=== PATIENT | male | born 1975 | race Two or more races ===

== ENCOUNTER 2020-03-11 15:49 | Inpatient (IN) | payer MEDICAID ==
[~2020-03-11] VITALS: Ht 170.2 cm; Wt 105.0 kg
[2020-03-11] MEDS ORDERED: VANCOMYCIN 1 G PREMIX 200 ML IV SCH (16:30)
[2020-03-11] MEDS ORDERED: PIPERACILLIN/TAZOBACTAM 3.375GM/50ML PREMIX IV ONE (16:30)
[2020-03-11] MEDS ORDERED: PIPERACILLIN/TAZOBACTAM 3.375 G in DEXT 5% WATER 100 ML IV SCH (16:30)
[2020-03-11] MEDS ORDERED: AZITHROMYCIN 500 MG in DEXT 5% WATER 250 ML IV SCH ×2 (16:30→19:00)
[2020-03-11 16:44] LABS: BASOPHILS % 0.6 % (0.0-2.0); EOSINOPHILS % 0.1 % (0.0-5.0); HEMATOCRIT. 41.7 % (42.0-52.0); HEMOGLOBIN. 14.4 g/dL (14.0-18.0); LYMPHOCYTES % 17.3 % (20.0-50.0); MEAN CORPUSCULAR VOLUME 92.7 fL (80.0-94.0); MEAN PLATELET VOLUME 8.2 fl (7.4-10.4); MONOCYTES % 4.5 % (2.0-8.0); NEUTROPHILS % 77.5 % (40.0-76.0); PLATELET 164 x1000/uL (130-400); RED CELL DISTRIBUTION WIDTH 13.4 % (11.6-14.6)
[2020-03-11 16:46] LABS: BG BASE EXCESS 0.8 mmol/L (-2.0-2.0); BG CARBOXYHEMOGLOBIN 0.6 % (0.5-1.5); BG DEOXYHEMOGLOBIN 6.1 % (0.0-5.0); BG FRACTION INSPIRED OXYGEN 100; BG HCO3 ACT 23.9 mmol/L (22.0-26.0); BG METHEMOGLOBIN 0.3 % (0.0-1.5); BG OXYGEN SATURATION 93.8 % (92.0-98.5); BG PCO2 34.1 mmHg (35.0-45.0); BG PH 7.464 (7.350-7.450); BG PO2 70.3 mmHg (75.0-100.0); BG SAMPLE SITE RIGHT RADIAL; BG VENT MODE MASK - NRB
[2020-03-11 16:47] LABS: CHLORIDE 100 mEq/L (98-107)
[2020-03-11 16:50] LABS: ETHANOL BLOOD < 10 mg/dL
[2020-03-11 16:54] LABS: D-DIMER 1.04 mg/L FEU (<0.50); PROTHROMBIN TIME 10.9 sec (9.6-11.0)
[2020-03-11] MEDS ORDERED: GUAIFENESIN 200MG/10ML SUGAR FREE UDC PO PRN (18:45)
[2020-03-11] MEDS ORDERED: DOCUSATE SODIUM 100MG CAPSULE PO PRN (18:45)
[2020-03-11] MEDS ORDERED: CLONIDINE 0.1MG TABLET PO PRN (18:45)
[2020-03-11] MEDS ORDERED: MAGNESIUM/ALUMINUM HYDROXIDE/SIMETHICONE 30ML UDC PO PRN (18:45)
[2020-03-11] MEDS ORDERED: ONDANSETRON HCL 4MG/2ML INJ IV PRN (18:45)
[2020-03-11] MEDS ORDERED: DEXAMETHASONE 4MG TABLET PO NR (19:00)
[2020-03-11] MEDS ORDERED: ENOXAPARIN 40MG/0.4ML SYR SUBCUT SCH (20:00)
[2020-03-11] MEDS ORDERED: CEFTRIAXONE 1 G PREMIX 50 ML IV SCH (21:00)
[2020-03-11] MEDS ORDERED: IOHEXOL-350 100 ML BOTTLE ONE (21:59)
[2020-03-11 23:03] LABS: CLARITY URINE CLOUDY (CLEAR); COLOR URINE DARK YELLOW (YELLOW); KETONES URINE 1+ (NEGATIVE); LEUKOCYTE ESTERASE URINE TRACE (NEGATIVE); NITRITE URINE NEGATIVE (NEGATIVE); OCCULT BLOOD URINE 2+ (NEGATIVE); PH URINE 5.5 (4.5-8.0); PROTEIN URINE 2+ (NEGATIVE); SPECIFIC GRAVITY URINE 1.029 (1.005-1.030); UROBILINOGEN URINE 0.2 E.U./dL (0.2-1.0)
[2020-03-11 23:23] LABS: *AMPHETAMINES SCREEN URINE NEGATIVE (NEGATIVE); *BARBITURATES SCREEN URINE NEGATIVE (NEGATIVE); *BENZODIAZEPINES SCREEN URINE NEGATIVE (NEGATIVE); *COCAINE SCREEN URINE NEGATIVE (NEGATIVE); METHADONE URINE SCREEN NEGATIVE (NEGATIVE); OPIATES URINE SCREEN NEGATIVE (NEGATIVE); PHENCYCLIDINE URINE SCREEN NEGATIVE (NEGATIVE)
[2020-03-11 23:25] LABS: CANNABINOID URINE SCREEN NEGATIVE (NEGATIVE)
[2020-03-12 00:02] VITALS: BP 132/82
[2020-03-12] MEDS: ALBUTEROL 6.7GM HFA INHALER ORI SCH ×4 (00:16→17:15)
[2020-03-12 00:21] VITALS: BP 128/82
[2020-03-12 04:00] VITALS: BP 115/73
[2020-03-12 06:18] LABS: BASOPHILS % 0.3 % (0.0-2.0); HEMATOCRIT. 40.7 % (42.0-52.0); HEMOGLOBIN. 14.1 g/dL (14.0-18.0); LYMPHOCYTES % 9.1 % (20.0-50.0); MEAN CORPUSCULAR HEMOGLOBIN 32.2 pg (28.0-32.0); MEAN CORPUSCULAR VOLUME 92.5 fL (80.0-94.0); MONOCYTES % 3.5 % (2.0-8.0); NEUTROPHILS % 87.1 % (40.0-76.0); PLATELET 162 x1000/uL (130-400); RED CELL DISTRIBUTION WIDTH 13.6 % (11.6-14.6)
[2020-03-12 06:36] LABS: CHLORIDE 103 mEq/L (98-107)
[2020-03-12] MEDS: ENOXAPARIN 100MG/ML SYR SUBCUT SCH ×2 (08:31→20:40)
[2020-03-12] MEDS ORDERED: DEXAMETHASONE 4MG TABLET PO SCH (09:00)
[2020-03-12 12:00] VITALS: BP 115/64
[2020-03-12 16:06] VITALS: BP 117/74
[2020-03-12] MEDS ORDERED: REMDESIVIR 200 MG in SODIUM CHLORIDE 0.9% 250 ML IV SCH (20:00)
[2020-03-12] MEDS: AZITHROMYCIN 500 MG in DEXT 5% WATER 250 ML IV SCH (20:36)
[2020-03-12 20:37] VITALS: BP 121/70
[2020-03-12] MEDS: GUAIFENESIN 600MG ER TABLET PO SCH (20:38)
[2020-03-12] MEDS: ACETAMINOPHEN 325MG TABLET PO PRN (20:46)
[2020-03-12] MEDS: CEFTRIAXONE 1 G PREMIX 50 ML IV SCH (21:00)
[2020-03-13] VITALS: BP 122/72
[2020-03-13] MEDS: ALBUTEROL 6.7GM HFA INHALER ORI SCH ×5 (00:08→23:29)
[2020-03-13 04:00] VITALS: BP 128/73
[2020-03-13 07:59] LABS: CHLORIDE 100 mEq/L (98-107)
[2020-03-13 08:00] VITALS: BP 102/59
[2020-03-13 08:19] LABS: CREATINE KINASE 486 IU/L (39-308)
[2020-03-13] MEDS: GUAIFENESIN 600MG ER TABLET PO SCH ×2 (08:45→21:38)
[2020-03-13] MEDS: ENOXAPARIN 100MG/ML SYR SUBCUT SCH ×2 (08:46→21:39)
[2020-03-13] MEDS: DEXAMETHASONE 4MG TABLET PO SCH (08:46)
[2020-03-13] MEDS ORDERED: DEXAMETHASONE 10 MG/ML VIAL IV SCH (09:00)
[2020-03-13 12:00] VITALS: BP 127/68
[2020-03-13 16:00] VITALS: BP 107/68
[2020-03-13 16:44] LABS: BG CARBOXYHEMOGLOBIN 0.2 % (0.5-1.5); BG DEOXYHEMOGLOBIN 7.3 % (0.0-5.0); BG FRACTION INSPIRED OXYGEN 100; BG HCO3 ACT 25.6 mmol/L (22.0-26.0); BG METHEMOGLOBIN 0.3 % (0.0-1.5); BG OXYGEN SATURATION 92.7 % (92.0-98.5); BG OXYHEMOGLOBIN 92.2 % (94.0-97.0); BG PCO2 36.6 mmHg (35.0-45.0); BG PH 7.462 (7.350-7.450); BG SAMPLE SITE RIGHT RADIAL; BG TOTAL HEMOGLOBIN 14.8 g/dL (12.0-18.0); BG VENT MODE MASK - NRB
[2020-03-13] MEDS: AZITHROMYCIN 500 MG in DEXT 5% WATER 250 ML IV SCH (19:33)
[2020-03-13 20:00] VITALS: BP 117/61
[2020-03-13] MEDS: REMDESIVIR 100 MG in SODIUM CHLORIDE 0.9% 250 ML IV SCH (20:34)
[2020-03-13] MEDS: CEFTRIAXONE 1 G PREMIX 50 ML IV SCH (21:38)
[2020-03-14] VITALS: BP 116/71
[2020-03-14 04:00] VITALS: BP 111/68
[2020-03-14] MEDS: ALBUTEROL 6.7GM HFA INHALER ORI SCH ×3 (05:53→17:32)
[2020-03-14 08:00] VITALS: BP 119/73
[2020-03-14] MEDS: ENOXAPARIN 100MG/ML SYR SUBCUT SCH ×2 (08:02→21:11)
[2020-03-14] MEDS: DEXAMETHASONE 4MG TABLET PO SCH (08:02)
[2020-03-14] MEDS: GUAIFENESIN 600MG ER TABLET PO SCH ×2 (08:02→21:11)
[2020-03-14 08:26] LABS: CHLORIDE 103 mEq/L (98-107)
[2020-03-14 12:00] VITALS: BP 118/79
[2020-03-14 16:00] VITALS: BP 124/67
[2020-03-14 20:00] VITALS: BP 138/72
[2020-03-14] MEDS: REMDESIVIR 100 MG in SODIUM CHLORIDE 0.9% 250 ML IV SCH (20:16)
[2020-03-14] MEDS: AZITHROMYCIN 500 MG in DEXT 5% WATER 250 ML IV SCH (20:16)
[2020-03-14] MEDS: CEFTRIAXONE 1 G PREMIX 50 ML IV SCH (21:00)
[2020-03-15] VITALS: BP 109/76
[2020-03-15] MEDS: ALBUTEROL 6.7GM HFA INHALER ORI SCH ×5 (02:01→23:38)
[2020-03-15 04:00] VITALS: BP 125/65
[2020-03-15 06:51] LABS: CHLORIDE 103 mEq/L (98-107)
[2020-03-15 08:00] VITALS: BP 121/73
[2020-03-15] MEDS: DEXAMETHASONE 4MG TABLET PO SCH (08:56)
[2020-03-15] MEDS: GUAIFENESIN 600MG ER TABLET PO SCH ×2 (08:56→21:18)
[2020-03-15] MEDS: ENOXAPARIN 100MG/ML SYR SUBCUT SCH ×2 (08:56→21:18)
[2020-03-15] MEDS ORDERED: POTASSIUM CHLORIDE 20MEQ TABLET SR PO SCH (10:00)
[2020-03-15 12:00] VITALS: BP 123/73
[2020-03-15] MEDS: ACETAMINOPHEN 325MG TABLET PO PRN (12:53)
[2020-03-15 16:00] VITALS: BP 126/84
[2020-03-15 20:00] VITALS: BP 107/64
[2020-03-15] MEDS: REMDESIVIR 100 MG in SODIUM CHLORIDE 0.9% 250 ML IV SCH (20:29)
[2020-03-15] MEDS: AZITHROMYCIN 500 MG in DEXT 5% WATER 250 ML IV SCH (21:18)
[2020-03-15] MEDS: CEFTRIAXONE 1 G PREMIX 50 ML IV SCH (23:37)
[2020-03-16] VITALS: BP 124/73
[2020-03-16 04:00] VITALS: BP 125/70
[2020-03-16] MEDS: ALBUTEROL 6.7GM HFA INHALER ORI SCH ×3 (06:00→18:36)
[2020-03-16 07:29] LABS: CHLORIDE 100 mEq/L (98-107)
[2020-03-16 07:37] LABS: BASOPHILS % 0.1 % (0.0-2.0); EOSINOPHILS % 0.2 % (0.0-5.0); HEMATOCRIT. 41.1 % (42.0-52.0); HEMOGLOBIN. 14.1 g/dL (14.0-18.0); LYMPHOCYTES % 10.6 % (20.0-50.0); MEAN CORPUSCULAR HEMOGLOBIN 31.9 pg (28.0-32.0); MEAN CORPUSCULAR VOLUME 92.6 fL (80.0-94.0); MEAN PLATELET VOLUME 8.3 fl (7.4-10.4); MONOCYTES % 2.2 % (2.0-8.0); NEUTROPHILS % 86.9 % (40.0-76.0); PLATELET 237 x1000/uL (130-400); RED BLOOD CELL COUNT 4.44 mill/uL (4.7-6.1); RED CELL DISTRIBUTION WIDTH 13.6 % (11.6-14.6)
[2020-03-16 08:00] VITALS: BP 124/69
[2020-03-16] MEDS: DEXAMETHASONE 4MG TABLET PO SCH (09:50)
[2020-03-16] MEDS: GUAIFENESIN 600MG ER TABLET PO SCH ×2 (09:51→21:47)
[2020-03-16] MEDS: ENOXAPARIN 100MG/ML SYR SUBCUT SCH ×2 (09:52→21:47)
[2020-03-16 12:00] VITALS: BP 159/89
[2020-03-16 12:32] LABS: BG BASE EXCESS -0.8 mmol/L (-2.0-2.0); BG DEOXYHEMOGLOBIN 4.7 % (0.0-5.0); BG FRACTION INSPIRED OXYGEN 99.9; BG HCO3 ACT 21.5 mmol/L (22.0-26.0); BG METHEMOGLOBIN 0.3 % (0.0-1.5); BG OXYGEN SATURATION 95.3 % (92.0-98.5); BG PCO2 29.8 mmHg (35.0-45.0); BG PH 7.476 (7.350-7.450); BG SAMPLE SITE RIGHT RADIAL; BG TOTAL HEMOGLOBIN 15.3 g/dL (12.0-18.0); BG VENT MODE MASK - NRB
[2020-03-16 20:00] VITALS: BP 113/67
[2020-03-16] MEDS: REMDESIVIR 100 MG in SODIUM CHLORIDE 0.9% 250 ML IV SCH (20:50)
[2020-03-16] MEDS: AZITHROMYCIN 500 MG in DEXT 5% WATER 250 ML IV SCH (21:48)
[2020-03-17] VITALS: BP 113/72
[2020-03-17] MEDS: CEFTRIAXONE 1 G PREMIX 50 ML IV SCH (00:48)
[2020-03-17] MEDS: ALBUTEROL 6.7GM HFA INHALER ORI SCH ×4 (00:48→18:29)
[2020-03-17 04:00] VITALS: BP 115/64
[2020-03-17 06:28] LABS: CHLORIDE 102 mEq/L (98-107)
[2020-03-17 08:00] VITALS: BP 124/68
[2020-03-17] MEDS: ENOXAPARIN 100MG/ML SYR SUBCUT SCH ×2 (09:11→20:25)
[2020-03-17] MEDS: GUAIFENESIN 600MG ER TABLET PO SCH ×2 (09:12→20:24)
[2020-03-17] MEDS: DEXAMETHASONE 4MG TABLET PO SCH (09:12)
[2020-03-17 12:00] VITALS: BP 110/72
[2020-03-17 16:00] VITALS: BP 135/72
[2020-03-17 20:41] VITALS: BP 107/78
[2020-03-18] VITALS: BP 126/69
[2020-03-18 04:00] VITALS: BP 132/82
[2020-03-18] MEDS: ALBUTEROL 6.7GM HFA INHALER ORI SCH ×4 (05:33→17:35)
[2020-03-18 08:00] VITALS: BP 120/86
[2020-03-18] MEDS: ENOXAPARIN 100MG/ML SYR SUBCUT SCH ×2 (09:19→21:02)
[2020-03-18] MEDS: GUAIFENESIN 600MG ER TABLET PO SCH ×2 (09:20→21:01)
[2020-03-18] MEDS: DEXAMETHASONE 4MG TABLET PO SCH (09:20)
[2020-03-18 12:00] VITALS: BP 117/77
[2020-03-18 15:01] LABS: BG BASE EXCESS 0.8 mmol/L (-2.0-2.0); BG DEOXYHEMOGLOBIN 3.8 % (0.0-5.0); BG FRACTION INSPIRED OXYGEN 99.9; BG HCO3 ACT 25.1 mmol/L (22.0-26.0); BG METHEMOGLOBIN 0.3 % (0.0-1.5); BG OXYGEN SATURATION 96.2 % (92.0-98.5); BG OXYHEMOGLOBIN 95.9 % (94.0-97.0); BG PH 7.426 (7.350-7.450); BG PO2 85.9 mmHg (75.0-100.0); BG SAMPLE SITE RIGHT RADIAL; BG VENT MODE MASK - NRB
[2020-03-18 16:00] VITALS: BP 111/75
[2020-03-18 20:00] VITALS: BP 139/75
[2020-03-19] VITALS: BP 106/81
[2020-03-19] MEDS: ALBUTEROL 6.7GM HFA INHALER ORI SCH ×4 (00:16→18:31)
[2020-03-19 04:00] VITALS: BP 125/77
[2020-03-19] MEDS: ENOXAPARIN 100MG/ML SYR SUBCUT SCH (09:31)
[2020-03-19] MEDS: GUAIFENESIN 600MG ER TABLET PO SCH ×2 (09:32→21:46)
[2020-03-19] MEDS: DEXAMETHASONE 4MG TABLET PO SCH (09:32)
[2020-03-19 13:33] LABS: BG BASE EXCESS 1.3 mmol/L (-2.0-2.0); BG CARBOXYHEMOGLOBIN 0.3 % (0.5-1.5); BG FRACTION INSPIRED OXYGEN 21; BG HCO3 ACT 23.8 mmol/L (22.0-26.0); BG METHEMOGLOBIN 0.1 % (0.0-1.5); BG OXYGEN SATURATION 80.9 % (92.0-98.5); BG OXYHEMOGLOBIN 80.6 % (94.0-97.0); BG PCO2 32.1 mmHg (35.0-45.0); BG PH 7.488 (7.350-7.450); BG SAMPLE SITE LEFT RADIAL; BG TOTAL HEMOGLOBIN 15.7 g/dL (12.0-18.0); BG VENT MODE ROOM AIR
[2020-03-19 16:00] VITALS: BP 121/79
[2020-03-19 20:00] VITALS: BP 100/70
[2020-03-19] MEDS: ENOXAPARIN 120MG/0.8ML SYR SUBCUT SCH (21:45)
[2020-03-20] VITALS: BP 120/78
[2020-03-20] MEDS: ALBUTEROL 6.7GM HFA INHALER ORI SCH ×4 (00:21→18:19)
[2020-03-20 04:00] VITALS: BP 103/70
[2020-03-20 08:00] VITALS: BP 105/68
[2020-03-20] MEDS: ENOXAPARIN 120MG/0.8ML SYR SUBCUT SCH (08:11)
[2020-03-20] MEDS: DEXAMETHASONE 4MG TABLET PO SCH (08:11)
[2020-03-20] MEDS: GUAIFENESIN 600MG ER TABLET PO SCH (08:12)
[2020-03-20 11:56] VITALS: BP 105/67
[2020-03-20 16:00] VITALS: BP 103/70
[2020-03-20 20:00] VITALS: BP 103/64
[2020-03-21] VITALS: BP 91/64
[2020-03-21] MEDS: GUAIFENESIN 600MG ER TABLET PO SCH ×3 (00:03→22:27)
[2020-03-21] MEDS: ENOXAPARIN 120MG/0.8ML SYR SUBCUT SCH ×3 (00:04→22:26)
[2020-03-21] MEDS: ALBUTEROL 6.7GM HFA INHALER ORI SCH ×4 (00:04→18:21)
[2020-03-21 04:00] VITALS: BP 100/70
[2020-03-21 08:00] VITALS: BP 109/67
[2020-03-21] MEDS: DEXAMETHASONE 4MG TABLET PO SCH (08:13)
[2020-03-21 12:00] VITALS: BP 102/70
[2020-03-21 16:20] VITALS: BP 109/64
[2020-03-21 20:00] VITALS: BP 99/71
[2020-03-22] VITALS: BP 110/62
[2020-03-22 04:00] VITALS: BP 97/60
[2020-03-22] MEDS: ALBUTEROL 6.7GM HFA INHALER ORI SCH ×4 (05:18→23:53)
[2020-03-22 08:00] VITALS: BP 96/53
[2020-03-22] MEDS: GUAIFENESIN 600MG ER TABLET PO SCH ×2 (08:26→21:03)
[2020-03-22] MEDS: ENOXAPARIN 120MG/0.8ML SYR SUBCUT SCH ×2 (08:26→21:02)
[2020-03-22] MEDS: DEXAMETHASONE 4MG TABLET PO SCH (08:26)
[2020-03-22 12:00] VITALS: BP 118/64
[2020-03-22 16:00] VITALS: BP 104/70
[2020-03-22 20:16] VITALS: BP 118/74
[2020-03-23 00:11] VITALS: BP 128/75
[2020-03-23 04:00] VITALS: BP 107/70
[2020-03-23] MEDS: ALBUTEROL 6.7GM HFA INHALER ORI SCH ×3 (05:36→17:01)
[2020-03-23 06:53] LABS: BASOPHILS % 0.7 % (0.0-2.0); EOSINOPHILS % 0.6 % (0.0-5.0); HEMATOCRIT. 42.3 % (42.0-52.0); HEMOGLOBIN. 14.6 g/dL (14.0-18.0); LYMPHOCYTES % 17.7 % (20.0-50.0); MEAN CORPUSCULAR HEMOGLOBIN 31.6 pg (28.0-32.0); MEAN CORPUSCULAR VOLUME 91.7 fL (80.0-94.0); MEAN PLATELET VOLUME 8.5 fl (7.4-10.4); MONOCYTES % 4.9 % (2.0-8.0); NEUTROPHILS % 76.1 % (40.0-76.0); PLATELET 273 x1000/uL (130-400); RED BLOOD CELL COUNT 4.61 mill/uL (4.7-6.1); RED CELL DISTRIBUTION WIDTH 13.7 % (11.6-14.6)
[2020-03-23 08:00] VITALS: BP 111/73
[2020-03-23 08:16] LABS: CHLORIDE 98 mEq/L (98-107)
[2020-03-23] MEDS: GUAIFENESIN 600MG ER TABLET PO SCH ×2 (09:01→20:17)
[2020-03-23] MEDS: DEXAMETHASONE 4MG TABLET PO SCH (09:01)
[2020-03-23] MEDS: ENOXAPARIN 120MG/0.8ML SYR SUBCUT SCH ×2 (09:02→20:18)
[2020-03-23 11:19] LABS: BG BASE EXCESS 1.1 mmol/L (-2.0-2.0); BG CARBOXYHEMOGLOBIN 0.4 % (0.5-1.5); BG DEOXYHEMOGLOBIN 4.7 % (0.0-5.0); BG FRACTION INSPIRED OXYGEN 99.8; BG HCO3 ACT 25.5 mmol/L (22.0-26.0); BG METHEMOGLOBIN 0.4 % (0.0-1.5); BG OXYGEN SATURATION 95.3 % (92.0-98.5); BG OXYHEMOGLOBIN 94.5 % (94.0-97.0); BG PCO2 39.8 mmHg (35.0-45.0); BG PH 7.425 (7.350-7.450); BG PO2 79.3 mmHg (75.0-100.0); BG SAMPLE SITE RIGHT RADIAL; BG TOTAL HEMOGLOBIN 14.8 g/dL (12.0-18.0); BG VENT MODE MASK - NRB
[2020-03-23 12:00] VITALS: BP 106/67
[2020-03-23 16:00] VITALS: BP 116/67
[2020-03-23 20:00] VITALS: BP 106/66
[2020-03-24] VITALS: BP 118/73
[2020-03-24] MEDS: ALBUTEROL 6.7GM HFA INHALER ORI SCH ×4 (00:22→18:32)
[2020-03-24 04:00] VITALS: BP 92/56
[2020-03-24 08:00] VITALS: BP 98/63
[2020-03-24] MEDS: DEXAMETHASONE 4MG TABLET PO SCH (08:08)
[2020-03-24] MEDS: ENOXAPARIN 120MG/0.8ML SYR SUBCUT SCH ×2 (08:09→20:22)
[2020-03-24] MEDS: GUAIFENESIN 600MG ER TABLET PO SCH ×2 (08:09→20:22)
[2020-03-24 12:00] VITALS: BP 96/62
[2020-03-24 16:00] VITALS: BP 113/57
[2020-03-24 20:00] VITALS: BP 114/72
[2020-03-25] VITALS: BP 105/67
[2020-03-25] MEDS: ALBUTEROL 6.7GM HFA INHALER ORI SCH ×4 (00:11→17:45)
[2020-03-25 04:00] VITALS: BP 104/67
[2020-03-25 08:00] VITALS: BP 106/65
[2020-03-25] MEDS: GUAIFENESIN 600MG ER TABLET PO SCH ×2 (08:45→21:15)
[2020-03-25] MEDS: DEXAMETHASONE 4MG TABLET PO SCH (08:45)
[2020-03-25] MEDS: ENOXAPARIN 120MG/0.8ML SYR SUBCUT SCH ×2 (08:46→21:15)
[2020-03-25 12:00] VITALS: BP 99/69
[2020-03-25 16:00] VITALS: BP 109/66
[2020-03-25 20:00] VITALS: BP 90/54
[2020-03-26] VITALS: BP 103/64
[2020-03-26] MEDS: ALBUTEROL 6.7GM HFA INHALER ORI SCH ×4 (00:21→17:18)
[2020-03-26 04:00] VITALS: BP 103/62
[2020-03-26 08:00] VITALS: BP 95/59
[2020-03-26] MEDS: ENOXAPARIN 120MG/0.8ML SYR SUBCUT SCH ×2 (08:46→21:19)
[2020-03-26] MEDS: DEXAMETHASONE 4MG TABLET PO SCH (08:46)
[2020-03-26] MEDS: GUAIFENESIN 600MG ER TABLET PO SCH ×2 (08:46→21:19)
[2020-03-26 12:00] VITALS: BP 107/58
[2020-03-26 15:55] VITALS: BP 105/54
[2020-03-26 20:00] VITALS: BP 120/67
[2020-03-27] MEDS: ALBUTEROL 6.7GM HFA INHALER ORI SCH ×4 (00:18→17:56)
[2020-03-27 00:31] VITALS: BP 113/70
[2020-03-27 04:00] VITALS: BP 107/74
[2020-03-27] MEDS: GUAIFENESIN 600MG ER TABLET PO SCH ×2 (08:06→20:58)
[2020-03-27] MEDS: ENOXAPARIN 120MG/0.8ML SYR SUBCUT SCH ×2 (08:07→20:58)
[2020-03-27 12:05] VITALS: BP 102/58
[2020-03-27 16:07] VITALS: BP 104/68
[2020-03-27 20:00] VITALS: BP 96/66
[2020-03-28] VITALS: BP 97/68
[2020-03-28] MEDS: ALBUTEROL 6.7GM HFA INHALER ORI SCH ×4 (00:06→18:01)
[2020-03-28 04:00] VITALS: BP 101/66
[2020-03-28 08:00] VITALS: BP 109/65
[2020-03-28] MEDS: GUAIFENESIN 600MG ER TABLET PO SCH ×2 (08:30→20:45)
[2020-03-28] MEDS: ENOXAPARIN 120MG/0.8ML SYR SUBCUT SCH ×2 (08:30→20:46)
[2020-03-28 12:00] VITALS: BP 105/67
[2020-03-28 16:00] VITALS: BP 102/70
[2020-03-28 20:00] VITALS: BP 94/43
[2020-03-29] VITALS: BP 101/68
[2020-03-29] MEDS: ALBUTEROL 6.7GM HFA INHALER ORI SCH ×5 (00:24→23:40)
[2020-03-29 04:00] VITALS: BP 101/63
[2020-03-29 08:00] VITALS: BP 102/59
[2020-03-29] MEDS: ENOXAPARIN 120MG/0.8ML SYR SUBCUT SCH ×2 (08:22→21:09)
[2020-03-29] MEDS: GUAIFENESIN 600MG ER TABLET PO SCH ×2 (08:22→21:08)
[2020-03-29 09:11] LABS: BASOPHILS % 1.1 % (0.0-2.0); EOSINOPHILS % 3.1 % (0.0-5.0); HEMATOCRIT. 42.2 % (42.0-52.0); HEMOGLOBIN. 14.4 g/dL (14.0-18.0); LYMPHOCYTES % 33.2 % (20.0-50.0); MEAN CORPUSCULAR HEMOGLOBIN 31.7 pg (28.0-32.0); MEAN CORPUSCULAR VOLUME 92.9 fL (80.0-94.0); NEUTROPHILS % 55.6 % (40.0-76.0); PLATELET 147 x1000/uL (130-400); RED BLOOD CELL COUNT 4.55 mill/uL (4.7-6.1); RED CELL DISTRIBUTION WIDTH 13.9 % (11.6-14.6)
[2020-03-29 09:24] LABS: CHLORIDE 105 mEq/L (98-107)
[2020-03-29 12:00] VITALS: BP 96/56
[2020-03-29 16:00] VITALS: BP 101/60
[2020-03-29 20:00] VITALS: BP 98/68
[2020-03-30] VITALS: BP 103/71
[2020-03-30 04:00] VITALS: BP 95/64
[2020-03-30] MEDS: ALBUTEROL 6.7GM HFA INHALER ORI SCH ×3 (05:26→17:31)
[2020-03-30 08:17] VITALS: BP 99/66
[2020-03-30] MEDS: GUAIFENESIN 600MG ER TABLET PO SCH ×2 (08:17→21:02)
[2020-03-30] MEDS: ENOXAPARIN 120MG/0.8ML SYR SUBCUT SCH ×2 (08:17→21:02)
[2020-03-30 12:13] VITALS: BP 100/69
[2020-03-30 15:57] VITALS: BP 93/61
[2020-03-30 20:00] VITALS: BP 95/62
[2020-03-31] VITALS (7 sets, daily range): BP systolic 90–103; BP diastolic 57–73
[2020-03-31] MEDS: ALBUTEROL 6.7GM HFA INHALER ORI SCH ×4 (01:31→18:07)
[2020-03-31] MEDS: ENOXAPARIN 120MG/0.8ML SYR SUBCUT SCH (08:00)
[2020-03-31] MEDS: GUAIFENESIN 600MG ER TABLET PO SCH (08:01)
== END 2020-03-31 21:20 | disposition home or self-care (01) | DRG 720 ==
LOC: ER 15:49 → 7WST 17:33 → EDBEDREQTM 17:36 → EDBEDREQ 17:36 → ENRESERV 21:00
PROVIDERS: ADMIT Hospitalist; ATTEND Hospitalist
PROC: XW033E5 Introduction of Remdesivir Anti-infective into Peripheral Vein, Percutaneous Approach, New Technology Group 5 (ICD-10-PCS; principal; 2020-03-12)
DX: A41.89 Other specified sepsis (principal); U07.1 COVID-19; J96.01 Acute respiratory failure with hypoxia; J12.89 Other viral pneumonia; D68.59 Other primary thrombophilia; N39.0 Urinary tract infection, site not specified; D72.810 Lymphocytopenia; R74.0 Nonspecific elevation of levels of transaminase and lactic acid dehydrogenase [LDH]
CPT/HCPCS: 36415; 36600; 71045; 71275; 80048; 80053; 80305; 80320; 81003; 82375; 82550; 82728; 82805; 83605; 83615; 83735; 83880; 84145; 84484; 85025; 85379; 86140; 86850; 86900; 93005; 99285; J0456; J0696; J1650; J2543; J3370; J7050; J7060; J8540; Q9957; Q9967; G0480; U0003-CS